=== PATIENT | male | born 1950 | race Caucasian/White ===

== ENCOUNTER 2025-02-10 07:43 | Day surgery (SDC) | payer OTHER, BC ==
[2025-02-08 15:08] VITALS: BMI 32.8
[2025-02-10] MEDS ORDERED: PROPOFOL 160 ML ONE (08:02)
[2025-02-10] MEDS ORDERED: LIDOCAINE HCL/PF 2% SDV 5ML VIAL ONE (08:02)
[2025-02-10 08:09] VITALS: RESP 18
[2025-02-10 09:02] VITALS: PULSE 82; TEMP 97.9
[2025-02-10 09:10] VITALS: BP 129/61
== END 2025-02-10 09:15 | disposition home or self-care (01) ==
LOC: FASU-ENDO 07:43
PROVIDERS: ATTEND Internal Medicine Gastroenterology
PROC: 0DJD8ZZ Inspection of Lower Intestinal Tract, Via Natural or Artificial Opening Endoscopic (ICD-10-PCS; principal; 2025-02-10 08:36)
DX: Z12.11 Encounter for screening for malignant neoplasm of colon (principal); Z85.038 Personal history of other malignant neoplasm of large intestine; Z98.0 Intestinal bypass and anastomosis status